=== PATIENT | female | born 1995 | race Caucasian/White ===

== ENCOUNTER 2016-12-01 00:20 | Emergency (ER) | payer OTHER ==
[~2016-12-01] VITALS: Ht 170.2 cm; Wt 69.4 kg
[2016-12-01 00:33] VITALS: Ht 170.2 cm; Wt 69.4 kg
[2016-12-01] MEDS ORDERED: IBUPROFEN 600 MG TAB PO STA (00:53)
[2016-12-01] MEDS ORDERED: ACETAMINOPHEN 500 MG TAB PO STA (00:53)
[2016-12-01] MEDS ORDERED: DEXAMETHASONE SOD INJ 10 MG/ML VIAL ONE (02:38)
[2016-12-01] MEDS ORDERED: GADAVIST IV PRN (04:15)
[2016-12-01 04:49] LABS: ALB/GLOB RATIO 1.2 (0.9-2); ALKALINE PHOSPHATASE 42 U/L (45-117); ALT/SGPT 23 U/L (12-78); AST/SGOT 15 U/L (15-37); BLOOD UREA NITROGEN 10 mg/dl (7-18); C-REACTIVE PROTEIN < 0.29 mg/dl (0-0.29); CALCIUM 8.6 mg/dl (8.5-10.1); CARBON DIOXIDE 28 mmol/L (21-32); CHLORIDE 109 mmol/L (98-107); POTASSIUM 3.8 mmol/L (3.5-5.1); SODIUM 142 mmol/L (136-145)
[2016-12-01 04:53] LABS: CREATININE 0.75 mg/dl (0.60-1.20); GLUCOSE 95 mg/dl (70-99)
[2016-12-01 04:54] LABS: BUN/CREATININE RATIO 13.4 (10-20)
[2016-12-01 05:14] LABS: URINE APPEARANCE CLEAR (CLEAR); URINE BILIRUBIN NEG (NEG); URINE COLOR YELLOW; URINE NITRITE NEG (NEG); URINE PH 7.5 (4.5-7.5); URINE SPECIFIC GRAVITY 1.031 (1.000-1.030); UROBILINOGEN NEG (NEG)
[2016-12-01 05:15] LABS: MANUAL MICROSCOPIC REQUIRED? NO; REVIEW REQ? NO
[2016-12-01 05:25] LABS: PREG INTERNAL NEGATIVE QC NEG CLEAR BACKGROUND; PREG INTERNAL POSITIVE QC POS CONTROL LINE
[2016-12-01 06:24] LABS: BASO % 0.4 %; BASO ABS # 0.02 K/uL (0-0.2); COMPLETE YES; EOS % 1.3 %; HEMATOCRIT 38.5 % (37-47); IG% 0.2 %; LYMPH % 43.7 %; LYMPH ABS # 2.43 K/uL (1.2-3.4); MEAN CELL VOLUME 87.1 fL (80-100); MEAN CORPUSCULAR HEMOGLOBIN 30.3 pg (25-34); MEAN CORPUSCULAR HGB CONC 34.8 g/dl (32-36); MEAN PLATELET VOLUME 11.3 fL (7.4-10.4); MONO % 7.6 %; NEUT % 46.8 %; PLATELET COUNT 177 K/uL (130-400); RED BLOOD COUNT 4.42 M/uL (4.2-5.4); WHITE BLOOD COUNT 5.56 K/uL (4.8-10.8)
[2016-12-01] MEDS ORDERED: PRED20TA2 PO (06:44)
[2016-12-01 06:51] VITALS: BP 111/69; PULSE 88; TEMP 36.7; O2SAT 99
--- NOTE | 2016-12-01 07:26 | DIAGNOSTIC IMAGING REPORT ---
CT OF THE LUMBAR SPINE WITHOUT CONTRAST CT DOSE: 593.36 mGy.cm CLINICAL HISTORY: Low back and left leg numbness. 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 TECHNIQUE: Axial images of the lumbar spine were obtained without IV contrast. Sagittal and coronal reconstructions were viewed. COMPARISON STUDY: None. FINDINGS: Alignment of lumbar spine is anatomic. Vertebral body heights are maintained. There is no acute fracture or suspicious lesion. Paravertebral soft tissues are unremarkable by CT. There are Schmorl's nodes within multiple endplates of the lumbar spine. Sacroiliac joints are intact. Central canal and neural foramen are suboptimally assessed by CT. There is a disc bulge with small superimposed central disc protrusion at L5-S1 that results in mild to moderate narrowing of the central canal. There is mild central canal stenosis at L4-L5 due to disc bulge. IMPRESSION: 1. No acute lumbar spine fracture or subluxation. 2. Disc bulges at L4-L5 and L5-S1 with a superimposed small central disc protrusion at L5-S1 that results in mild to moderate narrowing of the central canal. Electronically signed by: Mainor Young M.D. 12/01/2016 7:24 AM Dictated Date/Time: 12/01/2016 7:21 AM
--- NOTE | 2016-12-01 07:52 | DIAGNOSTIC IMAGING REPORT ---
MRI OF THE LUMBAR SPINE WITH AND WITHOUT CONTRAST CLINICAL HISTORY: Back pain and left leg numbness. Evaluate for abscess. COMPARISON STUDY: Lumbar spine CT December 01, 2016. TECHNIQUE: Utilizing a 1.5 Justine magnet and dedicated coil, multiplanar, multiecho imaging of the lumbar spine was performed before and after uneventful IV administration of 6.5 mL of Gadavist. FINDINGS: For purposes of numbering on this exam, the L5-S1 disc space is assigned to axial image 27 of 30. Vertebral body heights are maintained. There is no marrow replacement. There is no intracanalicular mass or fluid collection. Conus terminates at the inferior L1 level. Paravertebral soft tissues are unremarkable. L1-2: The central canal and neural foramen are patent. L2-3: Central canal and neural foramen are patent. L3-4: Central canal and neural foramen are patent. L4-5: There is mild disc bulge. There is minimal narrowing of the central canal and lateral recesses. Neural foramen are patent. L5-S1: There is disc bulge with small superimposed central disc protrusion that results in mild narrowing of the central canal and lateral recesses. IMPRESSION: 1. No epidural abscess. 2. Mild disc bulge with small central disc protrusion at L5-S1 that results in mild narrowing of the central canal and lateral recesses. Electronically signed by: Mainor Young M.D. 12/01/2016 7:51 AM Dictated Date/Time: 12/01/2016 7:46 AM
--- NOTE | 2016-12-01 22:15 | EMERGENCY ROOM VISIT NOTE ---
History First contact with patient: 00:43 Chief Complaint: OTHER COMPLAINT Stated Complaint: BACK OF THIGH FEELS NUMB History of Present Illness The patient is a 21 year old female who presents to the Emergency Room with complaints of numbness along the back of her left buttocks into the back of her left thigh. The patient states that she has had the symptoms for the past 4 days. She does not recall a distinct injury or trauma, but does admit to drinking alcohol the night before her symptoms began. The patient does not have saddle paresthesias or changes in her bathroom use. 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 The patient has not had fever or chills. No nausea, vomiting, flank pain, or abdominal pain. She denies chance of . No headache. She rates her discomfort a 2/10 and she does not have distinct pain, but more of numbness. Review of Systems More than 10 systems were reviewed and otherwise negative with the exception of history of present illness. Past Medical/Surgical History No chronic medical disease Family History No pertinent family history Social History Smoking Status: Never Smoker Occupation Status: [employer] student Current/Historical Medications Scheduled Control Pills ( Control Pills), 1 TAB PO DAILY Prednisone (Prednisone Tab), 2 TAB PO DAILY Allergies Coded Allergies: No Known Allergies (Unverified , 12/01/16) Physical Exam Vital Signs Date Time Temp Pulse Resp B/P Pulse Ox O2 Delivery O2 Flow Rate FiO2 12/01/16 06:51 36.7 88 20 111/69 99 12/01/16 06:46 88 20 111/69 12/01/16 04:03 119/80 12/01/16 02:20 59 99 12/01/16 01:21 59 18 119/73 99 Room Air 12/01/16 01:18 119/73 12/01/16 00:33 36.7 60 16 129/85 98 Room Air Pain Rating (0-10): 0 Physical Exam VITALS: Vitals are noted on the nurse's note and reviewed by myself. Vital signs stable. GENERAL: Well-developed, well-nourished, white female, who is in no acute distress and resting comfortably. Patient is cooperative with the examination. HEAD: Normocephalic atraumatic. HEART: Regular rate and rhythm without murmurs gallops or rubs. LUNGS: Clear to auscultation bilaterally without wheezes, rales or rhonchi. No retractions or accessory muscle use. ABDOMEN: Positive normal bowel sounds x 4. Soft, nontender, without masses or organomegaly. No guarding or rebound tenderness. MUSCULOSKELETAL: No muscle atrophy, erythema, or edema noted. There is mild left-sided lower lumbar spine tenderness on palpation. Regarding the left lower extremity there is subjective numbness from the mid buttocks posteriorly to the mid medial thigh. Neurovascular status is intact distally to the left lower extremity. Patellar reflex 2+ intact. Negative straight leg raise. No saddle paresthesias. No obvious cellulitis or evidence of infection. NEURO: Patient was alert and oriented to person place and time. CN II through XII grossly intact. Deep tendon reflexes 2+ throughout. Medical Decision & Procedures ER Provider Diagnostic Interpretation: CT OF THE LUMBAR SPINE WITHOUT CONTRAST CT DOSE: 593.36 mGy.cm CLINICAL HISTORY: Low back and left leg numbness. 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 TECHNIQUE: Axial images of the lumbar spine were obtained without IV contrast. Sagittal and coronal reconstructions were viewed. COMPARISON STUDY: None. FINDINGS: Alignment of lumbar spine is anatomic. Vertebral body heights are maintained. There is no acute fracture or suspicious lesion. Paravertebral soft tissues are unremarkable by CT. There are Schmorl's nodes within multiple endplates of the lumbar spine. Sacroiliac joints are intact. Central canal and neural foramen are suboptimally assessed by CT. There is a disc bulge with small superimposed central disc protrusion at L5-S1 that results in mild to moderate narrowing of the central canal. There is mild central canal stenosis at L4-L5 due to disc bulge. IMPRESSION: 1. No acute lumbar spine fracture or subluxation. 2. Disc bulges at L4-L5 and L5-S1 with a superimposed small central disc protrusion at L5-S1 that results in mild to moderate narrowing of the central canal. MRI OF THE LUMBAR SPINE WITH AND WITHOUT CONTRAST CLINICAL HISTORY: Back pain and left leg numbness. Evaluate for abscess. COMPARISON STUDY: Lumbar spine CT December 01, 2016. TECHNIQUE: Utilizing a 1.5 Justine magnet and dedicated coil, multiplanar, multiecho imaging of the lumbar spine was performed before and after uneventful IV administration of 6.5 mL of Gadavist. FINDINGS: For purposes of numbering on this exam, the L5-S1 disc space is assigned to axial image 27 of 30. Vertebral body heights are maintained. There is no marrow replacement. There is no intracanalicular mass or fluid collection. Conus terminates at the inferior L1 level. Paravertebral soft tissues are unremarkable. L1-2: The central canal and neural foramen are patent. L2-3: Central canal and neural foramen are patent. L3-4: Central canal and neural foramen are patent. L4-5: There is mild disc bulge. There is minimal narrowing of the central canal and lateral recesses. Neural foramen are patent. L5-S1: There is disc bulge with small superimposed central disc protrusion that results in mild narrowing of the central canal and lateral recesses. IMPRESSION: 1. No epidural abscess. 2. Mild disc bulge with small central disc protrusion at L5-S1 that results in mild narrowing of the central canal and lateral recesses. Laboratory Results 12/01/16 02:23 Red Blood Count 4.42, Mean Corpuscular Volume 87.1, Mean Corpuscular Hemoglobin 30.3, Mean Corpuscular Hemoglobin Concent 34.8, Mean Platelet Volume 11.3, Neutrophils (%) (Auto) 46.8, Lymphocytes (%) (Auto) 43.7, Monocytes (%) (Auto) 7.6, Eosinophils (%) (Auto) 1.3, Basophils (%) (Auto) 0.4, Neutrophils # (Auto) 2.61, Lymphocytes # (Auto) 2.43, Monocytes # (Auto) 0.42, Eosinophils # (Auto) 0.07, Basophils # (Auto) 0.02 12/01/16 02:23 Test 12/01/16 02:23 White Blood Count 5.56 K/uL (4.8-10.8) Red Blood Count 4.42 M/uL (4.2-5.4) Hemoglobin 13.4 g/dL (12.0-16.0) Hematocrit 38.5 % (37-47) Mean Corpuscular Volume 87.1 fL (80-100) Mean Corpuscular Hemoglobin 30.3 pg (25-34) Mean Corpuscular Hemoglobin Concent 34.8 g/dl (32-36) Platelet Count 177 K/uL (130-400) Mean Platelet Volume 11.3 fL (7.4-10.4) Neutrophils (%) (Auto) 46.8 % Lymphocytes (%) (Auto) 43.7 % Monocytes (%) (Auto) 7.6 % Eosinophils (%) (Auto) 1.3 % Basophils (%) (Auto) 0.4 % Neutrophils # (Auto) 2.61 K/uL (1.4-6.5) Lymphocytes # (Auto) 2.43 K/uL (1.2-3.4) Monocytes # (Auto) 0.42 K/uL (0.11-0.59) Eosinophils # (Auto) 0.07 K/uL (0-0.5) Basophils # (Auto) 0.02 K/uL (0-0.2) RDW Standard Deviation 40.2 fL (36.4-46.3) RDW Coefficient of Variation 12.5 % (11.5-14.5) Immature Granulocyte % (Auto) 0.2 % Immature Granulocyte # (Auto) 0.01 K/uL (0.00-0.02) Erythrocyte Sedimentation Rate 2 mm/hr (0-21) Urine Color YELLOW Urine Appearance CLEAR (CLEAR) Urine pH 7.5 (4.5-7.5) Urine Specific [place] 1.031 (1.000-1.030) Urine Protein NEG (NEG) Urine Glucose (UA) NEG (NEG) Urine Ketones NEG (NEG) Urine Occult Blood NEG (NEG) Urine Nitrite NEG (NEG) Urine Bilirubin NEG (NEG) Urine Urobilinogen NEG (NEG) Urine Leukocyte Esterase NEG (NEG) Urine Test NEG (NEG) Anion Gap 5.0 mmol/L (3-11) Est Creatinine Clear Calc Drug Dose 115.4 ml/min Estimated GFR () 132.1 Estimated GFR (Non- 113.9 BUN/Creatinine Ratio 13.4 (10-20) Calcium Level 8.6 mg/dl (8.5-10.1) Total Bilirubin 0.4 mg/dl (0.2-1) Aspartate Amino Transf (AST/SGOT) 15 U/L (15-37) Alanine Aminotransferase (ALT/SGPT) 23 U/L (12-78) Alkaline Phosphatase 42 U/L (45-117) C-Reactive Protein < 0.29 mg/dl (0-0.29) Total Protein 6.9 gm/dl (6.4-8.2) Albumin 3.8 gm/dl (3.4-5.0) Globulin 3.1 gm/dl (2.5-4.0) Albumin/Globulin Ratio 1.2 (0.9-2) Medications Administered Medications (Trade) Dose Ordered Sig/Glen Route Start Time Stop Time Status Last Admin Dose Admin Acetaminophen (Tylenol Tab) 1,000 mg NOW STAT PO 12/01/16 00:53 12/01/16 00:55 DC 12/01/16 01:01 1,000 MG Ibuprofen (Motrin Tab) 600 mg NOW STAT PO 12/01/16 00:53 12/01/16 00:55 DC 12/01/16 01:01 600 MG ED Course Physical exam and history were performed. Nursing notes and EMR were reviewed. Patient appears to have numbness in her left-sided buttocks and left thigh. She does not recall a distinct injury or trauma but does report some subjective issues in the past. I do have concerns as the patient does have some neurologic issues, and considering that she did drink alcohol the night before her symptoms began that may have been a fall or other incident causing her symptoms. Because of this a CT scan of the lumbar spine was performed. CT scan shows multiple disc bulging as described above. Because of the concerns and for the symptoms the case was discussed with my attending physician. Considering that she does have neurologic numbness and findings on CT scan and MRI was performed. IV access was established and basic labs were obtained. The patient was medicated as above. The patient's blood work is as above and was reviewed. She does not have a significantly elevated white blood cell count, worsening anemia, bandemia, or significant electrolyte imbalance. Sedimentation rate and CRP are normal. MRI of the lumbar spine does not show evidence of abscess , but does confirm bulging disks as better described above. I discussed the MRI findings with the on-call orthospine specialist, Dr. Smith , who recommended steroids and follow-up as an outpatient next week. This appears reasonable as the patient is very comfortable and does not have distinct pain. The patient may ultimately follow-up with orthospine back home in [place], and because of this I did provide her copies of her CT and MRI' s. I had a lengthy discussion with the patient regarding follow-up and invited her back to ER with any new, worsening, or concerning symptoms. The patient was pleased with this plan and was given additional discharge instructions as below. The chart was completed utilizing [employer] Speech Voice Recognition Software. Grammatical errors, random word insertions, pronoun errors, and incomplete sentences are an occasional consequence of this system due to software limitations, ambient noise, and hardware issues. Any formal questions or concerns about the content, text, or information contained within the body of this dictation should be directly addressed to the provider for clarification. . Medical Decision Differential diagnosis: Etiologies such as musculoskeletal, disc herniation, fracture, aortic disease, metastatic disease, cord compression, discitis, infection, renal colic, gastrointestinal, acute exacerbation of chronic back pain, sciatica, cauda equina, as well as others were entertained. Impression Primary Impression: Lumbar disc disease with radiculopathy Additional Impression: Numbness in left leg Departure Information Dispostion Home / Self-Care Condition GOOD Prescriptions Prednisone (Prednisone Tab) 20 Mg Tab 2 TAB PO DAILY for 5 Days, #10 TAB Prov: Renny Kay PA-C 12/01/16 Referrals Sarkis Carvajal M.D. Forms HOME CARE DOCUMENTATION FORM, IMPORTANT VISIT INFORMATION Patient Instructions My [facility] Additional Instructions You were seen and evaluated today on an emergency basis only. This is not a substitute for, or an effort to provide, complete comprehensive medical care. It is not possible to recognize and treat all injuries or illnesses in a single emergency department visit. For this reason it is recommended that you followup with Orthospine, Dr. Carvajal's office, for ongoing care and evaluation. Call today and schedule an appointment next week. If you wish to follow-up back home in [place] please take your imaging discs with you. For baseline pain relief you may alternate ibuprofen and acetaminophen every 4 hours for pain control. Take 600 mg ibuprofen (Advil) and then 4 hours later take 1000 mg acetaminophen (Tylenol). Do not take more than 3000 mg acetaminophen in a single day. Take prednisone as prescribed You are welcome to return to the emergency department anytime with new, worsening, or concerning symptoms. Problem Qualifiers
[2017-04-01] MEDS ORDERED: BCPILLS PO (01:41)
== END 2016-12-01 06:52 | disposition home or self-care (01) ==
LOC: C.EDB 00:22
DX: M51.16 Intervertebral disc disorders with radiculopathy, lumbar region (principal); R20.0 Anesthesia of skin; Z79.3 Long term (current) use of hormonal contraceptives

== ENCOUNTER 2017-04-01 19:18 | Emergency (ER) | payer OTHER ==
[~2017-04-01] VITALS: Ht 172.1 cm; Wt 65.1 kg
[~2017-04-01 19:18] MED LIST: BCPILLS PO
[2017-04-01 19:24] VITALS: TEMP 36.5; Ht 172.1 cm; Wt 65.1 kg
--- NOTE | 2017-04-01 19:38 | EMERGENCY ROOM VISIT NOTE ---
History Report prepared by Kael: Cindy Galindo Under the Supervision of: Dr. Reymundo Rodriguez M.D. First contact with patient: 19:28 Chief Complaint: ABDOMINAL PAIN Stated Complaint: ABDOMINAL PAIN, DIARRHEA Nursing Triage Summary: Patient reports abdominal pain/cramping for the last several days with diarrhea. Patient had one episode of emesis last night. Also states her diarrhea has changed colors. She was seen at [facility] and sent here for further evaluation. History of Present Illness The patient is a 21 year old female who presents to the Emergency Room with complaints of constant abdominal pain beginning 4 days ago. The patient reports that her pain began as cramping which she thought was due to her upcoming menstrual cycle. The cramping worsened and became so severe that she was unable to sleep the last 2 nights. Laying down alleviates her abdominal pain. She also reports having diarrhea every hour and blood in her stool. The patient has also been nauseous. She denies being in contact with anyone sick, recent travel, and antibiotic use. The patient was at [facility] today and referred here. She denies having urinary symptoms, chest pain, back pain, shortness of breath, and chance of . The patient is on control and has no history of abdominal surgeries. She reports taking Pepto-Bismol and Advil for her pain. Source of History: patient Onset: 4 days ago Position: abdomen Quality: cramping Timing: constant Modifying Factors (Relieving): rest (laying down) Associated Symptoms: + nausea, + diarrhea (with blood), No chest pain, No SOB, No back pain, No urinary symptoms Review of Systems See HPI for pertinent positives & negatives. A total of 10 systems reviewed and were otherwise negative. Past Medical & Surgical Medical Problems: (1) No active medical problems Old medical records were reviewed. Nurse's notes were reviewed and I agree with. Denies any chronic medical problems or abdominal surgeries Family History No pertinent family history No sick contacts Social History Smoking Status: Never Smoker Marital Status: single Occupation Status: [employer] student Current/Historical Medications Scheduled Control Pills ( Control Pills), 1 TAB PO DAILY Allergies Coded Allergies: No Known Allergies (Unverified , 12/01/16) Physical Exam Vital Signs Date Time Temp Pulse Resp B/P (MAP) Pulse Ox O2 Delivery O2 Flow Rate FiO2 04/01/17 21:52 58 16 109/65 98 04/01/17 19:24 36.5 73 16 121/84 99 Room Air Physical Exam General: Well developed well nourished young female in no acute distress, breathing comfortably on room air. Normal speech HEENT: Normal cephalic atraumatic. Pupils are equal round and reactive to light. Extraocular movements are intact. Oropharynx is pink with moist mucous membranes. No swelling of the mouth lips or tongue. Neck: Supple with a midline trachea. No meningeal signs or stiffness, no JVD or bruits. No Stridor. Chest: Clear to auscultation bilaterally. No wheezes or rhonchi. No increased work of breathing. Heart: regular rate and rhythm. Abdomen: Soft, mildly tender in lower abdomen bilaterally left greater than right, nondistended without rebound guarding or rigidity. Extremities: No cyanosis clubbing or edema. No calf tenderness or assymetry Spine/Back. Non tender to palpation. No CVA tenderness Skin: Good turgor without rashes. Neurologic exam: Cranial nerves two through 12 are intact. Motor and sensation are intact and symmetrical throughout. Medical Decision & Procedures Laboratory Results 04/01/17 20:00 Red Blood Count 4.92, Mean Corpuscular Volume 86.8, Mean Corpuscular Hemoglobin 29.9, Mean Corpuscular Hemoglobin Concent 34.4, Mean Platelet Volume 10.7, Neutrophils (%) (Auto) 77.8, Lymphocytes (%) (Auto) 13.8, Monocytes (%) (Auto) 7.3, Eosinophils (%) (Auto) 0.7, Basophils (%) (Auto) 0.2, Neutrophils # (Auto) 6.69, Lymphocytes # (Auto) 1.19, Monocytes # (Auto) 0.63, Eosinophils # (Auto) 0.06, Basophils # (Auto) 0.02 04/01/17 20:00 Test 04/01/17 19:50 04/01/17 20:00 Urine Color DK YELLOW Urine Appearance CLEAR (CLEAR) Urine pH 5.0 (4.5-7.5) Urine Specific [place] 1.026 (1.000-1.030) Urine Protein NEG (NEG) Urine Glucose (UA) NEG (NEG) Urine Ketones 1+ (NEG) Urine Occult Blood NEG (NEG) Urine Nitrite NEG (NEG) Urine Bilirubin NEG (NEG) Urine Urobilinogen NEG (NEG) Urine Leukocyte Esterase SMALL (NEG) Urine WBC (Auto) 5-10 /hpf (0-5) Urine RBC (Auto) 0-4 /hpf (0-4) Urine Hyaline Casts (Auto) 5-10 /lpf (0-5) Urine Epithelial Cells (Auto) >30 /lpf (0-5) Urine Bacteria (Auto) NEG (NEG) White Blood Count 8.61 K/uL (4.8-10.8) Red Blood Count 4.92 M/uL (4.2-5.4) Hemoglobin 14.7 g/dL (12.0-16.0) Hematocrit 42.7 % (37-47) Mean Corpuscular Volume 86.8 fL (80-100) Mean Corpuscular Hemoglobin 29.9 pg (25-34) Mean Corpuscular Hemoglobin Concent 34.4 g/dl (32-36) Platelet Count 172 K/uL (130-400) Mean Platelet Volume 10.7 fL (7.4-10.4) Neutrophils (%) (Auto) 77.8 % Lymphocytes (%) (Auto) 13.8 % Monocytes (%) (Auto) 7.3 % Eosinophils (%) (Auto) 0.7 % Basophils (%) (Auto) 0.2 % Neutrophils # (Auto) 6.69 K/uL (1.4-6.5) Lymphocytes # (Auto) 1.19 K/uL (1.2-3.4) Monocytes # (Auto) 0.63 K/uL (0.11-0.59) Eosinophils # (Auto) 0.06 K/uL (0-0.5) Basophils # (Auto) 0.02 K/uL (0-0.2) RDW Standard Deviation 40.1 fL (36.4-46.3) RDW Coefficient of Variation 12.5 % (11.5-14.5) Immature Granulocyte % (Auto) 0.2 % Immature Granulocyte # (Auto) 0.02 K/uL (0.00-0.02) Anion Gap 7.0 mmol/L (3-11) Est Creatinine Clear Calc Drug Dose 123.6 ml/min Estimated GFR () 138.7 Estimated GFR (Non- 119.7 BUN/Creatinine Ratio 8.8 (10-20) Calcium Level 8.7 mg/dl (8.5-10.1) Total Bilirubin 0.5 mg/dl (0.2-1) Direct Bilirubin 0.1 mg/dl (0-0.2) Aspartate Amino Transf (AST/SGOT) 18 U/L (15-37) Alanine Aminotransferase (ALT/SGPT) 17 U/L (12-78) Alkaline Phosphatase 48 U/L (45-117) Total Protein 6.9 gm/dl (6.4-8.2) Albumin 3.5 gm/dl (3.4-5.0) Lipase 92 U/L (73-393) Human Chorionic Gonadotropin, Qual NEG (NEG) Laboratory studies as stated above per my review. Medications Administered Medications (Trade) Dose Ordered Sig/Glen Route Start Time Stop Time Status Last Admin Dose Admin Sodium Chloride 1,000 ml @ 999 mls/hr Q1H1M STAT IV 04/01/17 19:39 04/01/17 20:39 DC 04/01/17 20:03 999 MLS/HR Sodium Chloride 1,000 ml @ 150 mls/hr Q6H40M ONCE IV 04/01/17 19:39 04/01/17 22:06 DC 04/01/17 20:21 150 MLS/HR Ondansetron HCl (Zofran Inj) 4 mg NOW STAT IV 04/01/17 19:39 04/01/17 19:41 DC 04/01/17 20:02 4 MG Ketorolac Tromethamine (Toradol Inj) 30 mg NOW STAT IV 04/01/17 19:39 04/01/17 19:41 DC 04/01/17 20:03 30 MG ED Course 0: Past medical records reviewed. The patient was evaluated in room C3, and a complete history and physical examination were performed. 1938: Ordered Toradol Inj 30 mg IV, Zofran Inj 4 mg IV, Sodium Chloride 1,000 ml @ 150 mls/hr IV, Sodium Chloride 1,000 ml @ 999 mls/hr IV. 2139: I talked to the patient's parents and they do not want to do a CT scan. The patient appears well, she is able to ambulate without pain, and her abdomen is minimally tender. 2149: Upon reevaluation, the patient is resting comfortably. I discussed the results and treatment plan with her. She verbalized agreement of the treatment plan. The patient was discharged home. Medical Decision Differentials include, but are not limited to; diarrhea, viral illness, colitis , appendicitis, infection, , and UTI. This patient comes in as described above she's had abdominal pain in the lower abdomen for a couple days as well as diarrhea with multiple episodes she's had no vomiting she's and a bladder melena in her stool. IV access established was hydrated with IV normal saline. She was given Toradol 30 mg IV and Zofran 4 mg IV. she remained stable . she has no white count or fever to suggest infection. On exam, she has no peritonitis or surgical symptoms. I had her ambulate and jump up and down and this does not cause any pain. I did order stool studies however she was unable give me a stool sample while she was here her urinalysis is suboptimal but does not suggest a UTI with a culture pending .she is not . She's had no acute electrolyte or metabolic abnormalities. Given her ongoing symptoms, I discussed the possibility of doing a CT with the patient. she discussed it with her parents. I explained the risks and benefits and they would prefer to hold off . at this point, I think this is reasonable and I think the chance of appendicitis or an infectious bacterial or surgical process is extremely low at this point however I encourage her return if: increasing pain, fever or chills, worsening of symptoms, any new problems or concerns and again they do not want to do a CAT scan at this point. I encouraged follow-up with the [facility] return to ER if any new problems or concerns. She was happy the plan and discharged home. Medication Reconcilliation Current Medication List: was personally reviewed by me Blood Pressure Screening Patient's blood pressure: Normal blood pressure Impression Primary Impression: Diarrhea Additional Impression: Lower abdominal pain Scribe Attestation The scribe's documentation has been prepared under my direction and personally reviewed by me in its entirety. I confirm that the note above accurately reflects all work, treatment, procedures, and medical decision making performed by me. Departure Information Dispostion Home / Self-Care Referrals [facility] (PCP) Forms HOME CARE DOCUMENTATION FORM, IMPORTANT VISIT INFORMATION Patient Instructions [facility] Additional Instructions Rest. Drink plenty of fluids. May use [id number] Imodium as needed for diarrhea. Do not exceed the over -the-counter recommended dosages Return if: Increasing pain, fever or chills, worsening of symptoms, any new problems or concerns. Follow-up with your doctor on Monday for recheck if not 100% better or return to ER over the weekend if symptoms worsen Problem Qualifiers
[2017-04-01] MEDS ORDERED: KETOROLAC TROMETHAMINE 30 MG/ML VIAL IV STA (19:39)
[2017-04-01] MEDS ORDERED: SODIUM CHLORIDE 0.9% 1000ML 1,000 ML IV ONE (19:39)
[2017-04-01] MEDS ORDERED: SODIUM CHLORIDE 0.9% 1000ML 1,000 ML IV STA (19:39)
[2017-04-01] MEDS ORDERED: ONDANSETRON INJ 2 MG/ML 2 ML VIAL IV STA (19:39)
[2017-04-01 20:17] LABS: BASO % 0.2 %; BASO ABS # 0.02 K/uL (0-0.2); COMPLETE YES; EOS % 0.7 %; HEMATOCRIT 42.7 % (37-47); IG% 0.2 %; LYMPH % 13.8 %; LYMPH ABS # 1.19 K/uL (1.2-3.4); MEAN CELL VOLUME 86.8 fL (80-100); MEAN CORPUSCULAR HEMOGLOBIN 29.9 pg (25-34); MEAN CORPUSCULAR HGB CONC 34.4 g/dl (32-36); MEAN PLATELET VOLUME 10.7 fL (7.4-10.4); MONO % 7.3 %; NEUT % 77.8 %; PLATELET COUNT 172 K/uL (130-400); RED BLOOD COUNT 4.92 M/uL (4.2-5.4); WHITE BLOOD COUNT 8.61 K/uL (4.8-10.8)
[2017-04-01 20:27] LABS: URINE APPEARANCE CLEAR (CLEAR); URINE BILIRUBIN NEG (NEG); URINE COLOR DK YELLOW; URINE EPITHELIAL CELL AUTO >30 /lpf (0-5); URINE NITRITE NEG (NEG); URINE SPECIFIC GRAVITY 1.026 (1.000-1.030); UROBILINOGEN NEG (NEG)
[2017-04-01 20:32] LABS: BUN/CREATININE RATIO 8.8 (10-20); CALCIUM 8.7 mg/dl (8.5-10.1); CREATININE 0.72 mg/dl (0.60-1.20); POTASSIUM 3.7 mmol/L (3.5-5.1)
[2017-04-01 20:37] LABS: MANUAL MICROSCOPIC REQUIRED? NO; REVIEW REQ? NO
[2017-04-01 20:38] LABS: PREG INTERNAL NEGATIVE QC NEG CLEAR BACKGROUND; PREG INTERNAL POSITIVE QC POS CONTROL LINE
[2017-04-01 21:52] VITALS: BP 109/65; PULSE 58; O2SAT 98
== END 2017-04-01 21:50 | disposition home or self-care (01) ==
LOC: C.EDB 19:19 → C.EDC 21:50
DX: R19.7 Diarrhea, unspecified (principal); R10.30 Lower abdominal pain, unspecified